=== PATIENT | female | born 1995 | race Caucasian/White ===

== ENCOUNTER 2021-09-15 09:57 | Inpatient (IN) ==
[2021-09-15] MEDS ORDERED: Famotidine 20 MG/2 ML VIAL IVP PRN (10:10)
[2021-09-15] MEDS ORDERED: Metoclopramide 10 MG/2 ML VIAL IVP PRN (10:10)
[2021-09-15] MEDS ORDERED: Azithromycin 500 MG in 0.9 % Sodium Chloride 250 ML IVPB PRN (10:10)
[2021-09-15] MEDS ORDERED: Ringers Solution, Lactated 1,000 ML IVC SCH (10:15)
[2021-09-15] MEDS ORDERED: Ropivacaine/PF 0.2% 20 ML VIAL EP ONE (10:17)
[2021-09-15] MEDS ORDERED: Ondansetron 4 MG/2 ML VIAL IVP PRN (10:17)
[2021-09-15] MEDS ORDERED: Naloxone 0.4 MG/ML INJ IVP PRN (10:17)
[2021-09-15] MEDS ORDERED: EPHEDrine 50 MG/ML VIAL IVP PRN (10:17)
[2021-09-15] MEDS ORDERED: *HR* FentaNYL (PF) 100 MCG/2 ML VIAL EP ONE (10:17)
[2021-09-15] MEDS ORDERED: Epidural Premix (fent/bupiv) 110 ML EP SCH (10:30)
[2021-09-15 10:54] LABS: Bacteria,Urine Few per hpf (None-Few); Basophils % 0.1 %; Bilirubin,Urine Negative (Negative); Blood,Urine Small (Negative); Clarity,Urine Turbid (Clear); Color,Urine Yellow (Yellow); Eosinophils # 0.1 K/mcL (0.0-0.6); Eosinophils % 1.2 %; Glucose,Urine (UA) Normal (Normal); Hematocrit 39.9 % (35.3-44.9); Hemoglobin 13.3 g/dL (11.5-15.4); Immature Granulocytes % 0.6 % (0-4); Ketones,Urine Negative (Negative); Leukocyte Esterase,Urine Large (Negative); Lymphocytes # 1.9 K/mcL (0.6-4.6); Lymphocytes % 23.6 %; Mean Corpuscular HGB Conc 33.3 g/dL (31.6-35.5); Mean Corpuscular Hemoglobin 30.6 pg (28.0-33.3); Mean Corpuscular Volume 91.9 fL (83.0-100.0); Mean Platelet Volume 11.7 fL (9.4-12.4); Monocytes # 0.6 K/mcL (0.0-1.3); Mucus,Urine Few per lpf (None-Few); Neutrophils # 5.5 K/mcL (1.6-8.9); Nitrite,Urine Negative (Negative); Platelet Count 227 K/mcL (140-400); Protein,Urine 100 mg/dL (Neg-Trace); RBC,Urine 30-50 per hpf (0-3); Red Blood Count 4.34 M/mcL (3.82-4.97); Red Cell Distribution Width 12.9 % (11.5-14.5); Segmented Neutrophils % 67.5 %; Squamous Epithelial Cell,Urine Moderate per hpf (None-Few); Urobilinogen,Urine Normal (Normal); WBC,Urine 30-50 per hpf (0-3); White Blood Count 8.1 K/mcL (4.3-11.1)
[2021-09-15 11:20] LABS: Alanine Aminotransferase 10 Units/L (7-52); Aspartate Amino Transferase 13 Units/L (13-39); BUN/Creatinine Ratio 18 (6-26); Blood Urea Nitrogen 9 mg/dL (6-20); Lactate Dehydrogenase 152 Units/L (140-271); Uric Acid 6.4 mg/dL (2.3-7.6); eGFR For African Americans > 60 (> 60); eGFR For Non-African Americans > 60 (> 60)
[2021-09-15 11:28] LABS: Influenza A PCR Negative (Negative); Influenza B PCR Negative (Negative); Resp. Syncytial Virus PCR Negative (Negative)
[2021-09-15 11:32] LABS: SARS-CoV-2 by PCR (In House) Positive (Negative)
[2021-09-15 13:27] LABS: Amphetamine Screen,Urine Negative ng/mL (Cutoff=1000); Barbiturate Screen,Urine Negative ng/mL (Cutoff=200); Benzodiazepines Screen,Urine Negative ng/mL (Cutoff=200); Cannabinoid Screen,Urine Negative ng/mL (Cutoff = 50); Cocaine Screen,Urine Negative ng/mL (Cutoff= 300); Creatinine,Urine 96 mg/dL; Opiate Screen,Urine Negative ng/mL (Cutoff=300); Phencyclidine Screen,Urine Negative ng/mL (Cutoff=25); Protein/Creatinine Ratio,Urine 1.89 mg/mg (0.00-0.20)
[2021-09-15 14:06] LABS: Rubella IgG Antibody POSITIVE (POSITIVE); Varicella Zoster IgG Antibody Positive
[2021-09-15 14:26] LABS: Hepatitis B Surface Antigen Nonreactive (Nonreactive)
[2021-09-15 14:56] LABS: HIV-1&2 Antibody & p24 Ag Nonreactive (Nonreactive)
[2021-09-15] MEDS ORDERED: Oxytocin 20 units/ LR 1000 mL 20 UNIT/1,000 ML BAG IVC ONE (15:49)
[2021-09-15] MEDS ORDERED: Lidocaine 1% 20 ML MDV ONE (15:55)
[2021-09-15] MEDS ORDERED: *HR* OxyCODONE Immed Rel 5 MG TABLET PO PRN (17:41)
[2021-09-15] MEDS ORDERED: Ondansetron ODT 4 MG TAB.RAPDIS SL PRN (17:41)
[2021-09-15] MEDS ORDERED: Benzocaine/Menthol 56 GM AEROSOL SPRAY TP PRN (17:41)
[2021-09-15] MEDS ORDERED: Oxytocin 20 units/ LR 1000 mL 20 UNIT/1,000 ML BAG IVC SCH (17:41)
[2021-09-15] MEDS ORDERED: Lanolin 7 G OINT...G. TP PRN (17:41)
[2021-09-15 18:14] LABS: Hepatitis C Virus Antibody Nonreactive (Nonreactive)
[2021-09-15] MEDS ORDERED: *HR* Labetalol 20 MG/4 ML SYRINGE IVP ONE (18:26)
[2021-09-15] MEDS ORDERED: Calcium Gluconate 1,000 MG/10 ML VIAL IVP PRN (18:33)
[2021-09-15] MEDS: Magnesium Sulf 20 gm/SW 500mL 20 GM/500 ML IV.SOLN IVC SCH (19:19)
[2021-09-15] MEDS: Ibuprofen 600 MG TABLET PO SCH (22:13)
[2021-09-15] MEDS: Acetaminophen 325 MG TABLET PO SCH (23:27)
[2021-09-16] MEDS: Ibuprofen 600 MG TABLET PO SCH ×3 (03:28→18:19)
[2021-09-16 03:59] LABS: Basophils % 0.2 %; Eosinophils % 0.4 %; Hematocrit 34.8 % (35.3-44.9); Hemoglobin 11.7 g/dL (11.5-15.4); Immature Granulocytes % 0.3 % (0-4); Lymphocytes # 1.2 K/mcL (0.6-4.6); Lymphocytes % 11.2 %; Mean Corpuscular HGB Conc 33.6 g/dL (31.6-35.5); Mean Corpuscular Hemoglobin 31.5 pg (28.0-33.3); Mean Corpuscular Volume 93.5 fL (83.0-100.0); Mean Platelet Volume 11.4 fL (9.4-12.4); Monocytes # 0.4 K/mcL (0.0-1.3); Monocytes % 4.1 %; Neutrophils # 8.7 K/mcL (1.6-8.9); Platelet Count 171 K/mcL (140-400); Red Blood Count 3.72 M/mcL (3.82-4.97); Red Cell Distribution Width 13.2 % (11.5-14.5); Segmented Neutrophils % 83.8 %; White Blood Count 10.4 K/mcL (4.3-11.1)
[2021-09-16 04:08] LABS: Creatinine,Urine 13 mg/dL
[2021-09-16 04:18] LABS: Alanine Aminotransferase 11 Units/L (7-52); Aspartate Amino Transferase 19 Units/L (13-39); BUN/Creatinine Ratio 11 (6-26); Blood Urea Nitrogen 7 mg/dL (6-20); Lactate Dehydrogenase 214 Units/L (140-271); Uric Acid 6.7 mg/dL (2.3-7.6); eGFR For African Americans > 60 (> 60); eGFR For Non-African Americans > 60 (> 60)
[2021-09-16] MEDS: Acetaminophen 325 MG TABLET PO SCH ×3 (05:43→20:00)
[2021-09-16] MEDS: Magnesium Sulf 20 gm/SW 500mL 20 GM/500 ML IV.SOLN IVC SCH (05:44)
[2021-09-16] MEDS: Prenatal Vit/FA 1 EACH TABLET PO SCH (09:30)
[2021-09-16] MEDS ORDERED: Ringers Solution, Lactated 500 ML ONE (13:05)
[2021-09-17] MEDS: Ibuprofen 600 MG TABLET PO SCH (04:41)
[2021-09-17] MEDS: Acetaminophen 325 MG TABLET PO SCH ×2 (04:41→12:51)
[2021-09-17] MEDS: Prenatal Vit/FA 1 EACH TABLET PO SCH (07:48)
[2021-09-17] MEDS ORDERED: NIFEdipine XL (24 HR) 30 MG TAB.ER.24 PO SCH ×2 (10:30→12:12)
[2021-09-17 15:26] VITALS: TEMP 98
[2021-09-17 16:25] VITALS: PULSE 100; O2SAT 97
[2021-09-17 16:26] VITALS: BP 133/93
== END 2021-09-17 16:35 | disposition home or self-care (01) ==
LOC: 1NENULAB → 1NENUOBS 21:31
PROVIDERS: ADMIT Obstetrics & Gynecology; ATTEND Obstetrics & Gynecology